=== PATIENT | female | born 1965 | race Two or more races ===

== ENCOUNTER 2017-12-23 06:23 | Day surgery (SDC) | payer BC ==
[~2017-12-23] VITALS: Ht 162.6 cm; Wt 63.5 kg
[2017-12-23] VITALS (10 sets, daily range): BP systolic 105–131; BP diastolic 63–76
[2017-12-23] MEDS ORDERED: BUPROPION XL300 MG ORAL (06:59)
[2017-12-23] MEDS ORDERED: Bupivacaine 0.5% Inj 30 ml vial INJ ONE (07:06)
[2017-12-23] MEDS ORDERED: Dexamethasone 4mg/ml vial ONE (07:06)
[2017-12-23] MEDS ORDERED: LR 1000ml 1,000 ML IVLG SCH (07:18)
--- NOTE | 2017-12-23 07:21 | Anethesia Preoperative Eval ---
Anesthesia Pre-op PMH/ROS General Date of Evaluation: Dec 23, 2017 Time of Evaluation: 07:10 Anesthesiologist: COBY ASA Score: ASA 2 Mallampati Score Class I : Soft palate, uvula, fauces, pillars visible Class II: Soft palate, uvula, fauces visible Class III: Soft palate, base of uvula visible Class IV: Only hard plate visible Mallampati Classification: Class II Surgeon: MARSHALL Diagnosis: RIGHT BUNION Surgical Procedure: RIGHT BUNIECTOMY Anesthesia History: none Family History: no anesthesia problems Allergies: Coded Allergies: No Known Allergies (Unverified , 12/22/17) Medications: see eMAR Anesthesia Pre-op Phys. Exam Physician Exam Last Vital Signs Date Time Temp Pulse Resp B/P (MAP) Pulse Ox O2 Delivery O2 Flow Rate FiO2 12/23/17 06:49 98.5 73 18 119/72 100 Room Air 98.5 Constitutional: NAD Neurologic: CN 2-12 intact Cardiovascular: RRR Respiratory: CTA Airway Exam Mallampati Score: Class II MO: full ROM: full Teeth: intact Anesthesia Pre-op A/P Risk Assessment & Plan Plan: GA Status Change Before Surgery: No Pre-Antibiotics Drug: ANCEF Given Within 1 Hr of Incision: Yes Time Given: 08:00 Guanako Delacruz M.D. Dec 23, 2017 07:21
--- NOTE | 2017-12-23 07:23 | Immediate Post-Op Evaluation ---
Immediate Post-Op Evalulation Immediate Post-Op Evalulation Procedure: RIGHT BUNIECTOMY Date of Evaluation: Dec 23, 2017 Time of Evaluation: 10:00 IV Fluids: 300 Blood Products: 0 Estimated Blood Loss: 0 Urinary Output: 0 Blood Pressure Systolic: 135 Blood Pressure Diastolic: 56 Pulse Rate: 78 Respiratory Rate: 16 O2 Sat by Pulse Oximetry: 99 Temperature (Fahrenheit): 98 Pain Score (1-10): 0 Nausea: No Vomiting: No Patient Status: awake, reacts, patent Drug: ANCEF Given Within 1 Hr of Incision: Yes Time Given: 08:00 Guanako Delacruz M.D. Dec 23, 2017 07:23
[2017-12-23] MEDS ORDERED: Propofol 1,000mg/ 100ml btl IV ONE (07:30)
[2017-12-23] MEDS ORDERED: Midazolam 2mg/2ml Inj IVP PRN (07:30)
[2017-12-23] MEDS ORDERED: NS Irrig 1000ml ONE (07:30)
[2017-12-23] MEDS ORDERED: LR 1000ml ONE (07:30)
[2017-12-23] MEDS ORDERED: DiphenhydrAMINE 50mg/ml Inj IVP PRN (07:30)
[2017-12-23] MEDS ORDERED: fentaNYL 100 mcg/2 mL IV ONE (07:30)
[2017-12-23] MEDS ORDERED: Midazolam 2mg/2ml Inj ONE (07:30)
[2017-12-23] MEDS ORDERED: Ketorolac 30mg Inj IV PRN (07:30)
[2017-12-23] MEDS ORDERED: Sterile Water Irrig 1000ml IRRIG ONE (07:30)
[2017-12-23] MEDS ORDERED: Hydromorphone 0.5mg/0.5ml inj IVP PRN (07:30)
--- NOTE | 2017-12-23 07:39 | Pre-Procedure Note/Attestation ---
Pre-Procedure Note/Attestation Complete Prior to Procedure Planned Procedure: right Procedure Narrative: Bunionectomy osteotomy right foot Indications for Procedure Pre-Operative Diagnosis: hallux valgus right foot Attestation I attest that I discussed the nature of the procedure; its benefits; risks and complications; and alternatives (and the risks and benefits of such alternatives ), prior to the procedure, with the patient (or the patient's legal automobile rental representative). I attest that, if there was a reasonable possibility of needing a blood transfusion, the patient (or the patient's legal automobile rental representative) was given the [facility] standardized written summary, pursuant to the Geovani Naida Blood Safety Act ([place] Health and Safety Code # 1645, as amended). I attest that I re-evaluated the patient just prior to the surgery and that there has been no change in the patient's H&P, except as documented below: YAMILKA MARTINS Dec 23, 2017 07:39
[2017-12-23] MEDS ORDERED: Lidocaine 1% Plain 30 ml INJ ONE (08:01)
--- NOTE | 2017-12-23 09:29 | Brief Operative Note ---
Immediate Post Operative Note Operative Note Pre-op Diagnosis: hallux valgus right foot Procedure: Bunionectomy with osteotomy right foot Post-op Diagnosis: same plus DJD first MTP right and contracture right EHL tendon Post-op Diagnosis: same as pre-op plus Surgeon: Regi Anesthesiologist: Jayme Anesthesia: MAC Specimen: yes Complications: none Condition: stable Fluids: 150 Estimated Blood Loss: minimal Drains: none Implant(s) used?: Yes YAMILKA MARTINS Dec 23, 2017 09:29
--- NOTE | 2017-12-23 12:21 | Diagnostic Imaging Report ---
Indication: Status post right foot surgery Technique: 3 views right foot Comparison: none Findings: There is evidence of bunionectomy. There is evidence of first metatarsal osteotomy with a surgical screw reducing osteotomy. There is also evidence of osteotomy of the first proximal phalanx, with a surgical staple in place. Small amount of retained air from the surgical wound is noted in the soft tissues. No acute fractures. No dislocations. The joint spaces are preserved. Impression: Postoperative changes, as described. No features
--- NOTE | 2017-12-23 17:15 | History and Physical Report ---
DATE OF ADMISSION: 12/23/2017 HISTORY OF PRESENT ILLNESS: This is a 52-year-old white female that is admitted today for right foot surgery. The patient has been complaining of right foot pain for the past several months. She has tried modifying her shoes and padding without any success and was consulted by me on correction of a painful bunion on the right foot. PAST MEDICAL HISTORY: Remarkable for depression and heart surgery to correct mitral stenosis. MEDICATIONS: Wellbutrin. ALLERGIES: None. PODIATRIC EXAMINATION: VASCULAR STUDIES: The vascular studies reveal intact reflexes measuring 2/4 bilaterally. The capillary filling time is less than 4 seconds to all digits bilaterally. Homans sign is negative. No varicosities are noted in bilateral lower extremity. NEUROLOGICAL EXAMINATION: Intact. Reflexes, Achilles, and patellar are measuring 2/4, equal, and brisk bilaterally. Sensation, proprioception, and vibration are all intact in bilateral lower extremity. Babinski is negative. Clonus is absent bilaterally. MUSCULOSKELETAL EXAM: Reveals hallux abductovalgus with bunion deformity bilaterally with the right side worse than the left. The hallux is overriding the second digit on the right side. Joint range of motion is slightly reduced on the right. No crepitation is noted. No other skeletal deformities are noted bilaterally. DERMATOLOGICAL EXAMINATION: Reveals intact skin without lesions, ulcerations, or scars bilaterally. The nails are all present and healthy bilaterally. ASSESSMENT: Hallux abductovalgus with bunion deformity, right foot. PLAN: The patient is admitted today for outpatient bunionectomy of her right foot. Postoperative instructions were given to the patient. Postoperative medications were dispensed to the patient. The patient elected to proceed with surgery. Tye Deluna D.P.M. DR: SALVADOR JOB#: [id number] CC:
--- NOTE | 2017-12-23 17:30 | Operative Note - Dictated ---
DATE OF OPERATION: 12/23/2017 SURGEON: Tye Deluna D.P.M. ANESTHESIOLOGIST: Guanako Delacruz M.D. REGISTERED ASSOCIATE: [facility] gray. PREOPERATIVE DIAGNOSIS: Hallux abductovalgus with bunion deformity. POSTOPERATIVE DIAGNOSES: 1. Hallux abductovalgus with bunion deformity. 2. Osteoarthritis of first metatarsophalangeal joint, right foot. 3. Contracture extensor hallucis longus, right foot. Procedures: 1. Modified Gerardo Bunionectomy right foot with screw fixation 2. Chip Osteotomy right foot 3. Extensor Hallucis Longus tendon lengthening right foot DESCRIPTION OF THE OPERATION: The patient was brought to the operating room and was placed on the operating room table in the supine position. Intravenous sedation was administered by the anesthesiologist. Local anesthesia consisting of 0.5% Marcaine plain total of 20 mL was administered to the right foot. An ankle tourniquet was applied to the right lower extremity. The foot was prepped and draped in the usual sterile manner. An Esmarch bandage was utilized to exsanguinate the blood and the right ankle tourniquet was inflated to 250 mmHg. Attention was then directed to the right hallux were an approximately 6 cm dorsal linear skin incision was centered over the first metatarsophalangeal joint. The incision was deepened utilizing sharp and blunt dissection with care being taken to cauterize and ligate all bleeders. At the level of the joint, a linear capsulotomy was performed. The capsule was reflected medially and laterally and the head of the first metatarsal was exposed. Utilizing a sagittal saw, the medial eminence was resected in total. The remaining bone was rasped smooth. The lateral release was then performed utilizing a #15 blade. The wound was copiously flushed utilizing sterile saline. At this point, chevron osteotomy was performed with the apex distal and the arms protruding proximally. Through and through osteotomy was carried utilizing the sagittal saw. The capital fragment was transposed laterally and fixated onto the metatarsal shaft utilizing 24 mm 3-0 headless screw, which was driven from dorsal proximal to plantar distal. At this point, a sagittal saw was utilized to resect the overhang medially. The bone was rasped smooth. The wound was copiously flushed utilizing sterile saline. Dissection was then carried distally over the proximal phalanx where the soft tissue capsule and periosteum was reflected off the shaft of the proximal phalanx. At this point, a medial wedge osteotomy was performed with care being taken to leave the lateral cortex intact. The osteotomy was reduced. Two drill bits just proximal and distal to the osteotomy were performed and an 8 x 8 mm staple was then utilized to fixate the osteotomy and the staple was inserted into the drill holes. The hallux was noted to still be dorsal medially contracted secondary to an contracted extensor tendon. At this point, an extensor tendon lengthening was performed in a Z-plasty manner and the hallux was brought into a more rectus position. It was noted also that the cartilage on the first metatarsal head was eroded. The wound was copiously flushed utilizing sterile saline. At this point, the capsule was reapproximated utilizing 3-0 Vicryl in a simple interrupted type stitch. The subcutaneous tissue was then reapproximated utilizing 4-0 Vicryl in a simple interrupted type stitch. The skin was then reapproximated utilizing 4-0 nylon in a simple interrupted type stitch. The wound was dressed utilizing an Adaptic 4 x 4 gauze, and 3-inch Estela. There right ankle tourniquet was deflated and vascular supply was noted to all digits right foot. Tye Deluna D.P.M. DR: SALVADOR JOB#: [id number] CC: CESIA
== END 2017-12-23 11:15 | disposition home or self-care (01) ==
LOC: SUR 06:23
DX: M21.611 Bunion of right foot (principal); M20.11 Hallux valgus (acquired), right foot; M19.071 Primary osteoarthritis, right ankle and foot; M20.5X1 Other deformities of toe(s) (acquired), right foot; F32.9 Major depressive disorder, single episode, unspecified
CPT/HCPCS: 28234; 28299; 73630; 97161; C1713; J0690; J1100; J2001; J2250; J2704; J3010; J3490; J7120; 94003; 94150